=== PATIENT | male | born 1990 | race Caucasian/White ===

== ENCOUNTER 2016-07-19 13:16 | Emergency (ER) | payer BC, OTHER ==
[~2016-07-19] VITALS: Wt 70.0 kg
[~2016-07-19 13:16] MED LIST: BACTDS PO; IBUP-1542 PO; NO MEDS
--- NOTE | 2016-07-19 14:34 | ERD ---
ER Documentation Chief Complaint Date/Time DATE: 07/19/16 TIME: 14:27 Chief Complaint FEVER AND HEADACHE AND SINUS PRESSURE FOR 3 DAYS. MILD COUGHING HPI 26-year-old otherwise healthy male presents to the emergency department with complaints of sinus pressure and congestion, ear pain, jaw pain, joint pain and general body aches 3 days. patient states he has suffered multiple sinus infections in the past. Patient states he has attempted to treat symptoms with Advil at home with only minor relief of his pain. Patient states the symptoms are worse when trying to perform physical activity. Patient is an employee of the [employer]. Patient states he did not get a flu shot this year. Patient denies any history of wheezing, coughing, abdominal pain, nausea, vomiting, diarrhea. ROS All systems reviewed and are negative except as per history of present illness. Medications Home Meds Active Scripts Amoxicillin/Potassium Clav (Amox-Clav 875-125 mg Tablet) 875-125 mg Tab, 1 TAB PO BID for 7 Days, #14 TAB Prov:CASSANDRA DEVINE PA-C 07/19/16 Guaifenesin/Pseudoephedrne HCl (Mucinex D ER 1,200-120 mg Tab) 1 Each Tab.er.12h , 1 EACH PO AC BREAKFAST for 7 Days, TAB Prov:CASSANDRA DEVINE PA-C 07/19/16 Sulfamethoxazole-Trimethoprim* (Bactrim* DS) 800-160 Mg Tab, 1 TAB PO BID for 7 Days, TAB Prov:RUTH ANN ELLER MD 10/25/15 Ibuprofen* (Motrin*) 600 Mg Tab, 600 MG PO Q6, #20 TAB Prov:RUTH ANN ELLER MD 10/25/15 Reported Medications [No Meds] No Conflict Check 12/06/09 Allergies Allergies: Coded Allergies: No Known Drug Allergies (Verified Allergy, Mild, 12/06/09) PMhx/Soc History of Surgery: No Anesthesia Reaction: No Hx Neurological Disorder: No Hx Respiratory Disorders: No Hx Cardiac Disorders: No Hx Psychiatric Problems: No Hx Miscellaneous Medical Probl: No Hx Alcohol Use: No Hx Substance Use: No Hx Tobacco Use: No Physical Exam Vitals Vital Signs Date Time Temp Pulse Resp B/P Pulse Ox O2 Delivery O2 Flow Rate FiO2 07/19/16 13:19 99.0 89 20 129/70 99 Physical Exam Const: Well-developed, well-nourished, in no acute distress, not toxic appearing. Head: Atraumatic Eyes: Normal Conjunctiva ENT: Normal External Ears, Nose and Mouth. Posterior pharynx without erythema or exudate. Tonsils non-swollen non-erythematous. Neck: Full range of motion..~ No meningismus. No lymphadenopathy Resp: Clear to auscultation bilaterally. No wheezes, rhonchi, rales Cardio: Regular rate and rhythm, no murmurs Abd: Soft, non tender, non distended. Normal bowel sounds Skin: No petechiae or rashes Back: No midline or flank tenderness Ext: No cyanosis, or edema Neur: Awake and alert Psych: Normal Mood and Affect Procedures/MDM The patient's clinical presentation is very consistent with an acute viral syndrome. The patient does not exhibit any clinical signs or symptoms concerning for serious bacterial infection or systemic illness. Based on history and clinical exam findings the patient does not appear to have evidence of pneumonia, strep pharyngitis, urinary tract infection, bacteremia, sepsis, or meningitis. For these reasons I do not believe it is necessary to obtain laboratory testing or diagnostic imaging. I believe it would be appropriate for symptom control, and close outpatient primary care follow-up. Based on patient's history of present illness and physical examination the decision was made to discharge. The patient was re-evaluated after ED treatment and stabilizing measures, and symptoms have improved. There is no evidence of life threatening injuries or illnesses at this time. On re-examination, patient resting in no distress, stable vital signs, reports feeling better and safe for discharge with outpatient follow up with PMD in 1-2 days. Patient given return precautions. Patient to continue Motrin and Tylenol for pain as needed. Patient provided with decongestant Departure Diagnosis: Primary Impression: Body aches Additional Impressions: Flu-like symptoms Sinus congestion Viral URI CASSANDRA DEVINE PA-C Jul 19, 2016 14:34
[2016-07-19] MEDS ORDERED: AMOX1TAB10 PO (14:40)
[2016-07-19] MEDS ORDERED: GUAI-106 PO (14:40)
== END 2016-07-19 17:05 | disposition home or self-care (01) ==
LOC: E/R 13:16
DX: R52 Pain, unspecified (principal); R09.89 Other specified symptoms and signs involving the circulatory and respiratory systems; J06.9 Acute upper respiratory infection, unspecified; R05 Cough

== ENCOUNTER 2016-10-27 16:10 | Emergency (ER) | payer BC ==
[~2016-10-27] VITALS: Wt 78.0 kg
[~2016-10-27 16:10] MED LIST changes: +AMOX1TAB10 PO; +GUAI-106 PO
--- NOTE | 2016-10-27 17:18 | RADRPT ---
PROCEDURE: XR Left Foot. CLINICAL INDICATION: foot and 3rd digit toe pain s/p injury TECHNIQUE: AP and lateral views of the left foot was obtained. The images were reviewed on a PACS workstation. COMPARISON: None. FINDINGS: The soft tissues and bony elements are normal. No fracture is identified. The joint spaces are norm al. IMPRESSION: 1. Normal left foot. 2. The left third digit is unremarkable. RPTAT:AAJJ Physician Will Date Time Electronically viewed and signed by Physician Will on 10/27/2016 17:18 /
[2016-10-27] MEDS ORDERED: NAPR-260 PO (17:25)
--- NOTE | 2016-10-27 17:31 | ERD ---
ER Documentation Chief Complaint Date/Time DATE: 10/27/16 TIME: 17:28 Chief Complaint LEFT PAIN AFTER INJURY YESTERDAY HPI Patient is a 26-year-old male with no past medical history who presents to the ED with left foot and third digit toe pain after sustaining an injury yesterday. Patient states that he was stretching and hit the top of his foot on the toilet seat. He states that he is able to ambulate but it does hurt when he applies pressure to his foot. Denies radiation of pain. Denies pain in his ankle or knee. Denies calf pain. Denies recent surgeries or recent travel. Denies chest pain, cough, shortness of breath or difficulty breathing. No other complaints. ROS All systems reviewed and are negative except as per history of present illness. Medications Home Meds Active Scripts Naproxen* (Naprosyn*) 500 Mg Tablet, 500 MG PO BID Y for PAIN AND/OR INFLAMMATION, #30 TAB Prov:LIS RUCKER PA-C 10/27/16 Amoxicillin/Potassium Clav (Amox-Clav 875-125 mg Tablet) 875-125 mg Tab, 1 TAB PO BID for 7 Days, #14 TAB Prov:CASSANDRA DEVINE PA-C 07/19/16 Guaifenesin/Pseudoephedrne HCl (Mucinex D ER 1,200-120 mg Tab) 1 Each Tab.er.12h , 1 EACH PO AC BREAKFAST for 7 Days, TAB Prov:CASSANDRA DEVINE PA-C 07/19/16 Sulfamethoxazole-Trimethoprim* (Bactrim* DS) 800-160 Mg Tab, 1 TAB PO BID for 7 Days, TAB Prov:RUTH ANN ELLER MD 10/25/15 Ibuprofen* (Motrin*) 600 Mg Tab, 600 MG PO Q6, #20 TAB Prov:RUTH ANN ELLER MD 10/25/15 Reported Medications [No Meds] No Conflict Check 12/06/09 Allergies Allergies: Coded Allergies: No Known Drug Allergies (Verified Allergy, Mild, 12/06/09) PMhx/Soc History of Surgery: No Anesthesia Reaction: No Hx Neurological Disorder: No Hx Respiratory Disorders: No Hx Cardiac Disorders: No Hx Psychiatric Problems: No Hx Miscellaneous Medical Probl: No Hx Alcohol Use: No Hx Substance Use: No Hx Tobacco Use: No FmHx Family History: No coronary disease, No diabetes, No other Physical Exam Vitals Vital Signs Date Time Temp Pulse Resp B/P Pulse Ox O2 Delivery O2 Flow Rate FiO2 10/27/16 16:14 98.0 81 18 133/68 99 Physical Exam GENERAL: Well-developed, well-nourished male. Appears in no acute distress. HEAD: Normocephalic, atraumatic. EYES: Pupils are equally reactive bilaterally. EOMs grossly intact. No conjunctival erythema. ENT: Moist mucous membranes. No uvula deviation. No kissing tonsils. No exudates. NECK: Supple. No lymphadenopathy or thyromegaly. No meningismus. negative kernig. negative brudinski. LUNG: Clear to auscultation bilaterally. No rhonchi, wheezing, rales or coarse breath sounds. HEART: Regular rate and rhythm. No murmurs, rubs or gallops. Extremities: Equal pulses bilaterally. No peripheral clubbing, cyanosis or edema. No unilateral leg swelling. 3rd digit of left foot has ecchymosis. slightly erytheatmous and ecchmyosis on dorsal aspect of left foot. no pain in ankle. No step-offs or deformities. No open wounds or lacerations. Pulses intact bilaterally. No pain above the ankle joint. Negative Homans sign. NEUROLOGIC: Alert and oriented. Moving all four extremities. 5/5 strength in all extremities. Normal speech. Steady gait. SKIN: Normal color. Warm and dry. No rashes or lesions. Capillary refill < 2 seconds Procedures/MDM ER COURSE: I kept the patient and/or family informed of laboratory and diagnostic imaging results throughout the emergency room course. IMAGING STUDIES [place] [id number] Radiology Main Line: [phone] DIAGNOSTIC IMAGING REPORT Patient: NADINE GRAHAM : 1990 Age: 26 Sex: M MR #: [id number] DOS: 10/27/16 1626 Ordering MD: LIS RUCKER PA-C Location: [facility] Room/Bed: PROCEDURE: XR Left Foot. CLINICAL INDICATION: foot and 3rd digit toe pain s/p injury TECHNIQUE: AP and lateral views of the left foot was obtained. The images were reviewed on a PACS workstation. COMPARISON: None. FINDINGS: The soft tissues and bony elements are normal. No fracture is identified. The joint spaces are normal. IMPRESSION: 1. Normal left foot. 2. The left third digit is unremarkable. RPTAT:AAJJ Physician Will Date Time Electronically viewed and signed by Timi Rosenthal Physician on 10/27/2016 17:18 JM/ CC: LIS RUCKER PA-C PROCEDURES Usama tape. Neurovascularly intact post placement. MEDICAL DECISION MAKING: This is a 26-year-old male who presents with left toe pain. Vital signs were reviewed. Patient is afebrile. Patient is not hypoxic. Patient is not toxic or ill-appearing. Patient likely has toe sprain. X-rays read by radiologist is unremarkable for fracture dislocation. Low suspicion for dislocation, fracture , septic joint, compartment syndrome, osteomyelitis, cellulitis, avascular necrosis, neurological injury, vascular injury, tendon laceration. DISCHARGE: At this time, patient is stable for discharge and outpatient management with no new complaints during the ER course. Patient was sent home with Fernando and a note for work.. Patient will be discharged home with instructions to recheck for new or worsening symptoms such as fever, nausea, weakness, LOC and to follow up with primary care in the next 1-2 days. Patient was advised to return to the ER for any new or worsening symptoms. Plan was discussed and patient and/ or family understands and agrees. Home instructions were given. Departure Diagnosis: Primary Impression: Foot pain, left Condition: Stable Patient Instructions: Sprain Toe Additional Instructions: Call your primary care doctor TOMORROW for an appointment during the next 1-2 days.See the doctor sooner or return here if your condition worsens before your appointment time. LIS RUCKER PA-C October 27, 2016 17:31
[2016-10-27 17:52] VITALS: BP 128/64; PULSE 62; RESP 18; TEMP 97.3
== END 2016-10-27 17:53 | disposition home or self-care (01) ==
LOC: FTE 16:10
DX: M79.672 Pain in left foot (principal)

== ENCOUNTER 2016-12-18 20:18 | Emergency (ER) | payer BC ==
[~2016-12-18] VITALS: Ht 170.2 cm; Wt 78.0 kg
[~2016-12-18 20:18] MED LIST changes: +NAPR-260 PO
[2016-12-18 20:24] VITALS: Ht 170.2 cm; Wt 78.0 kg
[2016-12-18] MEDS ORDERED: D-ME473S18 PO (21:43)
[2016-12-18] MEDS ORDERED: ACET-141 PO (21:43)
--- NOTE | 2016-12-18 21:50 | ERD ---
ER Documentation Chief Complaint Date/Time DATE: 12/18/16 TIME: 21:48 Chief Complaint ear throat pain, fever this am x 1 day HPI This is a 18-year-old male presents to the ER with a sore throat, ear pain and cough that started this morning. Patient denies any chest pain or shortness of breath. Sore throat is worse whenever he swallows. He denies any difficulty in swallowing. Cough is dry and mild. Patient states that he did not want to come, however he needs a note for work. ROS 12 point review of systems was done, all negative except per HPI. Medications Home Meds Active Scripts Dextromethorphan Hb-Promethazine Hcl (Promethazine DM Syrup) 473 Ml Syrup, 10 ML PO Q6H Y for COUGH, #4 OZ Prov:ALAYNA CAMPOS 12/18/16 Acetaminophen* (Acetaminophen*) 500 MG Extra Strength Tablet, 500 MG PO Q4H Y for PAIN AND OR ELEVATED TEMP for 3 Days, TAB Prov:ALAYNA CAMPOS 12/18/16 Naproxen* (Naprosyn*) 500 Mg Tablet, 500 MG PO BID Y for PAIN AND/OR INFLAMMATION, #30 TAB Prov:LIS RUCKER PA-C 10/27/16 Amoxicillin/Potassium Clav (Amox-Clav 875-125 mg Tablet) 875-125 mg Tab, 1 TAB PO BID for 7 Days, #14 TAB Prov:CASSANDRA DEVINE PA-C 07/19/16 Guaifenesin/Pseudoephedrne HCl (Mucinex D ER 1,200-120 mg Tab) 1 Each Tab.er.12h , 1 EACH PO AC BREAKFAST for 7 Days, TAB Prov:CASSANDRA DEVINE PA-C 07/19/16 Sulfamethoxazole-Trimethoprim* (Bactrim* DS) 800-160 Mg Tab, 1 TAB PO BID for 7 Days, TAB Prov:RUTH ANN ELLER MD 10/25/15 Ibuprofen* (Motrin*) 600 Mg Tab, 600 MG PO Q6, #20 TAB Prov:RUTH ANN ELLER MD 10/25/15 Reported Medications [No Meds] No Conflict Check 12/06/09 Allergies Allergies: Coded Allergies: No Known Drug Allergies (Verified Allergy, Mild, 12/06/09) PMhx/Soc Medical and Surgical Hx: pt denies Medical Hx, pt denies Surgical Hx History of Surgery: No Anesthesia Reaction: No Hx Neurological Disorder: No Hx Respiratory Disorders: No Hx Cardiac Disorders: No Hx Psychiatric Problems: No Hx Miscellaneous Medical Probl: No Hx Alcohol Use: No Hx Substance Use: No Hx Tobacco Use: No Physical Exam Vitals Vital Signs Date Time Temp Pulse Resp B/P Pulse Ox O2 Delivery O2 Flow Rate FiO2 12/18/16 20:24 97.6 81 18 117/67 99 Physical Exam GENERAL: The patient is well-developed, well-nourished, in no acute distress. NECK: Cervical spine is non tender with no step off. Supple, no nuchal rigidity HEENT: Atraumatic. Pupils equal, round and reactive to light. Extraocular muscles are grossly intact. Conjunctivae pink, no discharge. Bilateral tympanic membranes are clear with no evidence of erythema, effusion or dulling of the light reflex. Tonsilar erythema with no exudates or uvular deviation. Clear rhinorrhea. RESPIRATORY: Clear to auscultation bilaterally. There are no rales, wheezes or rhonchi. HEART: Regular rate and rhythm. No murmurs, clicks, rubs or gallops. EXTREMITIES: No clubbing or cyanosis. Full range of motion. Grossly neurovascularly intact. NEUROLOGIC: Alert and oriented. Cranial nerves II through XII are intact. SKIN: There is no rash. The skin is warm and dry. Procedures/MDM Differential diagnosis includes but is not limited to; Viral URI, allergic rhinitis, bronchitis, pertussis,pneumonia. This is likely viral in etiology. Clinical suspicion for pneumonia is low as patient appears well, is not hypoxic or in any respiratory distress. Additionally, patients physical examination is benign. Plan was discussed with patient they understand and agree. Patient needs to follow up with PCP in 1-2 days or return to ER sooner if symptoms worsen. Departure Diagnosis: Primary Impression: Upper respiratory infection Condition: Stable Patient Instructions: Preventing Common Respiratory Infections Additional Instructions: Call your primary care doctor TOMORROW for an appointment during the next 1-2 days.See the doctor sooner or return here if your condition worsens before your appointment time. ALAYNA CAMPOS Dec 18, 2016 21:49
== END 2016-12-18 22:05 | disposition home or self-care (01) ==
LOC: FTE 20:18
DX: J06.9 Acute upper respiratory infection, unspecified (principal)
CPT/HCPCS: 99283